=== PATIENT | male | born 1955 | race Caucasian/White ===

== ENCOUNTER 2022-01-29 15:14 | Emergency (ER) | payer OTHER ==
[~2022-01-29] VITALS: Ht 177.8 cm; Wt 88.5 kg
[~2022-01-29 15:14] MED LIST: AMLODIPINE-BENA1 CAP; CLONAZEPAM2 MG; CYMBALTA60 MG; GLIPIZIDE10 MG; GLUMETZA1000 MG; ULTRACET PO
[2022-01-29] MEDS ORDERED: JANUMET 50-5001 EACH PO (15:47)
== END 2022-01-29 17:03 | disposition home or self-care (01) ==
LOC: ER 15:14
DX: M77.8 Other enthesopathies, not elsewhere classified (principal); E11.9 Type 2 diabetes mellitus without complications; Z79.84 Long term (current) use of oral hypoglycemic drugs

== ENCOUNTER 2023-03-19 16:25 | Emergency (ER) | payer OTHER ==
[~2023-03-19] VITALS: Ht 177.8 cm; Wt 88.5 kg
[~2023-03-19 16:25] MED LIST changes: +JANUMET 50-5001 EACH PO
[2023-03-19] MEDS ORDERED: MIRTAZAPINE30 M1 PO (16:47)
[2023-03-19] MEDS ORDERED: ATORVASTATIN CA10 MG PO (16:48)
[2023-03-19 20:38] LABS: HEMATOCRIT 40.2 % (39.0-48.0); HEMOGLOBIN 13.3 g/dL (13-16.00); MEAN CELL VOLUME 90.2 fL (80.0-100.00); MEAN CORPUSCULAR HEMOGLOBIN 29.7 pg (27.00-32.0); PLATELET COUNT 235 K/uL (150-450); RED BLOOD COUNT 4.46 M/uL (4.00-6.00); RED CELL DISTRIBUTION WIDTH 13.6 % (11.5-14.5)
[2023-03-19 20:58] LABS: CREATININE SERUM 0.94 mg/dL (0.70-1.30); GFR 79.81; POTASSIUM 4.16 mEq/L (3.5-5.1)
== END 2023-03-19 22:04 | disposition home or self-care (01) ==
LOC: ER 16:26
PROVIDERS: General Practice
DX: R21 Rash and other nonspecific skin eruption (principal)
CPT/HCPCS: 36415; 96372; 99284; J1200